=== PATIENT | male | born 1970 | race Hispanic/Latino ===

== ENCOUNTER 2020-07-24 07:06 | Day surgery (SDC) | payer OTHER ==
[~2020-07-24] VITALS: Ht 172.7 cm; Wt 89.8 kg
[~2020-07-24 07:06] MED LIST: AMOXICILLIN500 MG PO; AZITHROMYCIN250 MG PO; BACTRIM DS1 TAB PO; BACTROBAN2 % EX; BENZONATATE200 MG PO; CIPROFLOXACN500 MG PO; FAMOTIDINE20 M1 PO; LEVAQUIN750 MG PO; MULTI VIT PO; NORCO1 TA2 PO; PREDNISONE10 MG PO; PRILOSEC20 MG PO; ROCEPHIN 2250 MG/VIA IM; SM IBUPROFEN200 MG; TESSALON PER100 MG PO; TET/DIP TOX1 ML IM; TUMS500 MG PO; ULTRAM50 M1 OR; ZANTAC 150 PO; ZITHROMAX250 MG PO
[2020-07-24 09:38] VITALS: BP 104/67
== END 2020-07-24 10:00 | disposition home or self-care (01) | DRG 392 ==
LOC: ENDO 07:06 → ORM 14:45 → ENDO 14:55 → ORM 14:55
PROVIDERS: ATTEND Internal Medicine Gastroenterology
PROC: 0DB28ZX Excision of Middle Esophagus, Via Natural or Artificial Opening Endoscopic, Diagnostic (ICD-10-PCS; principal; 2020-07-24)
PROC: 0DB78ZX Excision of Stomach, Pylorus, Via Natural or Artificial Opening Endoscopic, Diagnostic (ICD-10-PCS; 2020-07-24)
PROC: 0DB18ZX Excision of Upper Esophagus, Via Natural or Artificial Opening Endoscopic, Diagnostic (ICD-10-PCS; 2020-07-24)
PROC: 0DBN8ZX Excision of Sigmoid Colon, Via Natural or Artificial Opening Endoscopic, Diagnostic (ICD-10-PCS; 2020-07-24)
DX: K29.50 Unspecified chronic gastritis without bleeding (principal); Q39.8 Other congenital malformations of esophagus; K50.10 Crohn's disease of large intestine without complications; K29.80 Duodenitis without bleeding; K31.7 Polyp of stomach and duodenum; K44.9 Diaphragmatic hernia without obstruction or gangrene; D13.0 Benign neoplasm of esophagus; K21.9 Gastro-esophageal reflux disease without esophagitis; K57.30 Diverticulosis of large intestine without perforation or abscess without bleeding; K64.4 Residual hemorrhoidal skin tags; Z86.010 Personal history of colon polyps; Z80.7 Family history of other malignant neoplasms of lymphoid, hematopoietic and related tissues; Z20.822 Contact with and (suspected) exposure to COVID-19

== ENCOUNTER 2023-01-06 08:43 | Emergency (ER) | payer OTHER ==
[~2023-01-06] VITALS: Ht 172.7 cm; Wt 94.0 kg
[2023-01-06] VITALS (10 sets, daily range): BP systolic 114–141; BP diastolic 64–83
[2023-01-06 10:49] LABS: BASO% 0.6 % (0-3); HEMATOCRIT 46.3 % (39.0-50.0); HEMOGLOBIN 15.4 g/dl (14.0-18.0); IMMATURE GRANULOCYTES 0.4 % (0.0-5.0); LYMPH% 14.5 % (15-41); MEAN CELL VOLUME 89.9 fL CALC (80.0-100.0); MEAN CORPUSCULAR HGB 29.9 pG CALC (26.0-32.0); MEAN CORPUSCULAR HGB CONC 33.3 g/dL CAL (32.0-36.0); MONO% 5.2 % (2-13); NEUT# 6.3 thou/uL (1.82-7.42); NEUT% 79.3 % (42-76); RED BLOOD COUNT 5.15 mill/uL (4.70-6.10)
[2023-01-06 10:57] LABS: ALBUMIN 4.2 g/dL (3.2-5.0); ALKALINE PHOSPHATASE 81 u/l (38-126); BUN 17 mg/dL (9-20); BUN/CREATININE RATIO 16 (12-20 (CALC)); CARBON DIOXIDE 24 mmol/l (22-30); CHLORIDE 103 mmol/l (95-108); CREATININE 1.1 mg/dL (0.7-1.3); GFR FOR AFR.AMER. > 60 ML/MIN (>=60 (CALC)); GFR OTHER RACES > 60 ML/MIN (>=60 (CALC)); LIPASE 129 u/l (23-300); POTASSIUM 4.8 mmol/l (3.5-5.1); SGOT/AST 40 u/l (17-59); TOTAL PROTEIN 7.6 g/dL (6.3-8.2)
[2023-01-06 10:58] LABS: ANION GAP 13 (6-22 (CALC)); BILIRUBIN, TOTAL 0.9 mg/dL (0.2-1.3); SODIUM 135 mmol/l (137-146)
[2023-01-06 11:53] LABS: URINE BILIRUBIN - DIPSTICK Negative (NEGATIVE); URINE BLOOD DIPSTICK Negative (NEGATIVE); URINE GLUCOSE - DIPSTICK Negative (NEGATIVE); URINE KETONE Negative (NEGATIVE); URINE LEUK ESTERASE Negative (NEGATIVE); URINE NITRITE - DIPSTICK Negative (Negative); URINE PROTEIN - DIPSTICK Negative (NEG-TRACE); URINE SPECIFIC GRAVITY <=1.005; URINE UROBILINOGEN - DIPSTICK 0.2 E.U./dL (0.2)
[2023-01-06 11:54] LABS: URINE COLOR Yellow
[2023-01-06] MEDS ORDERED: NAPROXEN500 MG PO (13:47)
[2023-01-06] MEDS ORDERED: ZOFRAN4 MG/TAB PO (13:47)
== END 2023-01-06 14:15 | disposition home or self-care (01) | DRG 392 ==
LOC: ED 08:43
PROVIDERS: Family Medicine
DX: R10.32 Left lower quadrant pain (principal); Z87.442 Personal history of urinary calculi